=== PATIENT | female | born 1955 | race Caucasian/White ===

== ENCOUNTER → 2019-10-12 | Outpatient (CLI) | payer MEDICARE ==
[~2019-10-12] MED LIST: ALBU18HF INH; BIOTIN PO; CYCL1DRO EACHEYE; DENO60DI IM; FIBER PO; FLUT16SP24 NAS; GABA-826 PO; HYDR-3241 PO; LEVO125T5 PO; MELO15TA24 PO; MULT-516 PO; NITR0.4T28 SL; OMEP-110 PO; SERT50TA28 PO; TRAZ50TA66 PO; VITAMIN C PO; VITAMIN D3 PO; ZOLOFT PO
== END | disposition home or self-care (01) ==
LOC: STAR 12:31
PROVIDERS: ATTEND Surgery
DX: Z01.818 Encounter for other preprocedural examination (principal); Z20.828 Contact with and (suspected) exposure to other viral communicable diseases; K63.5 Polyp of colon; K57.90 Diverticulosis of intestine, part unspecified, without perforation or abscess without bleeding
CPT/HCPCS: 36415; 87635; 93005